=== PATIENT | male | born 1975 | race Hispanic/Latino ===

== ENCOUNTER 2025-07-14 15:24 | Emergency (ER) | payer OTHER ==
[~2025-07-14] VITALS: Ht 167.6 cm; Wt 83.0 kg
[2025-07-14 15:30] VITALS: PULSE 79; RESP 18; TEMP 98.3
[2025-07-14] MEDS ORDERED: PREDNISONE20 MG PO (16:39)
[2025-07-14] MEDS ORDERED: TYLENOL325 MG PO (16:39)
[2025-07-14] MEDS ORDERED: IBUPROFEN600 MG PO (16:39)
[2025-07-14] MEDS: DEXAMETHASONE SOD PHOS INJ 4 MG/ML SDV IV ONE (16:52)
[2025-07-14] MEDS: ACETAMINOPHEN 325 MG TAB PO ONE (16:53)
[2025-07-14] MEDS: LACTATED RINGER'S 1,000 ML INJ ONE (16:54)
[2025-07-14] MEDS: KETOROLAC TROMETHAMINE 30 MG/ML VIAL IV STA (16:54)
[2025-07-14 18:40] VITALS: BP 123/76; PULSE 71; RESP 20; TEMP 97.8; O2SAT 95
== END 2025-07-14 18:35 | disposition home or self-care (01) ==
LOC: FSED 15:29
DX: M25.531 Pain in right wrist (principal); M02.331 Reiter's disease, right wrist; F17.210 Nicotine dependence, cigarettes, uncomplicated
CPT/HCPCS: 73110; 80053; 84484; 85025; 85379; 93005; 93931; 93971; 99283; J1100; J1885; J7121